=== PATIENT | female | born 1965 | race Two or more races ===

== ENCOUNTER 2021-10-27 16:29 | Observation (INO) | payer MEDICAID ==
[2021-10-27 16:57] LABS: BASOPHILS # (AUTO) 0.1 10^3/uL (0.0-0.1); BASOPHILS % (AUTO) 0.9 %; EOSINOPHILS # (AUTO) 0.2 10^3/uL (0.0-0.7); EOSINOPHILS % (AUTO) 2.8 %; HCT - HEMATOCRIT 45.8 % (37.0-47.0); HGB - HEMOGLOBIN 15.6 g/dL (12.0-16.0); LYMPHOCYTES # (AUTO) 2.5 10^3/uL (1.5-3.5); MEAN CORPUSCULAR HEMOGLOBIN 29.8 pg (27.0-31.0); MEAN CORPUSCULAR HGB CONC 34.1 g/dL (32.0-36.0); MEAN CORPUSCULAR VOLUME 87.4 fL (81.0-99.0); MEAN PLATELET VOLUME 10.1 fL (7.9-10.8); MONOCYTES # (AUTO) 0.3 10^3/uL (0.0-1.0); MONOCYTES % (AUTO) 5.3 %; NEUTROPHILS # (AUTO) 2.6 10^3/uL (1.5-6.6); NEUTROPHILS % (AUTO) 46.6 %; PLT - PLATELET COUNT 243 10^3/uL (130-450); RED BLOOD COUNT 5.24 10^6/uL (4.20-5.40); WHITE BLOOD COUNT 5.6 x10^3/uL (4.8-10.8)
[2021-10-27] MEDS ORDERED: ASPIRIN CHEW 81 MG TABLET PO STA (17:01)
--- NOTE | 2021-10-27 17:05 | ED Physician Documentation ---
PD HPI CHEST PAIN - Stated complaint Stated Complaint: CP,L ARM & HEAD PX - Chief complaint Chief Complaint: Cardiac - History obtained from History obtained from: Patient - Additional information Additional information: This is a 55-year-old woman who presents for evaluation of chest pain. For the last 3 days she has had constant left anterior chest pain. Although its been constant it has been increasing in its size. It started out as a "poking" pain that was quite focal near the left costochondral junction and since then has migrated to a much larger area across the breast and under the armpit. She is short of breath with it but denies sweats, except sweats that are associated with menopause. Denies pedal edema or calf pain. She vacillates on whether it is exertional or not. Cardiac risk factors include family history, mom having heart problem and dying in her 40s from it and her brother having coronary disease in his mid 50s. She is also a smoker. Review of Systems Ten Systems: 10 systems reviewed and negative Constitutional: denies: Fever, Chills, Fatigue Cardiac: denies: Palpitations Respiratory: denies: Cough PD PAST MEDICAL HISTORY - Allergies Allergies/Adverse Reactions: Allergies Allergy/AdvReac Type Severity Reaction Status Date / Time No Known Drug Allergies Allergy Verified 10/27/21 16:36 PD ED PE NORMAL - Vitals Vital signs reviewed: Yes - General General: Alert and oriented X 3, No acute distress - HEENT HEENT: PERRL, EOMI - Neck Neck: Supple, no meningeal sign, No bony TTP - Cardiac Cardiac: RRR, No murmur - Respiratory Respiratory: No respiratory distress, Clear bilaterally - Abdomen Abdomen: Normal bowel sounds, Soft, Non tender - Back Back: No CVA TTP, No spinal TTP - Derm Derm: Normal color, Warm and dry - Extremities Extremities: No edema, No calf tenderness / cord - Neuro Neuro: Alert and oriented X 3, Normal speech Results - Vitals Vitals: Vital Signs - 24 hr 10/27/21 10/27/21 10/27/21 16:34 16:52 17:31 Temperature 36.9 C Heart Rate 85 85 90 Respiratory 16 15 15 Rate Blood Pressure 147/87 H 135/90 H 141/102 H O2 Saturation 95 96 96 Oxygen O2 Source Room air - EKG (time done) 1644 Rate: Rate (enter#) (79) Rhythm: NSR [place]: Normal Intervals: Normal [place] QRS: Normal Ischemia: Non specific changes (Flattened T waves kind of diffusely without ST elevation or depression) - Labs Labs: Laboratory Tests 10/27/21 10/27/21 10/27/21 16:50 16:50 16:50 WBC 5.6 RBC 5.24 Hgb 15.6 Hct 45.8 MCV 87.4 MCH 29.8 MCHC 34.1 RDW 12.0 Plt Count 243 MPV 10.1 Neut # (Auto) 2.6 Lymph # (Auto) 2.5 Todd # (Auto) 0.3 Eos # (Auto) 0.2 Baso # (Auto) 0.1 Absolute Nucleated RBC 0.00 Nucleated RBC % 0.0 Sodium 133 L Potassium 3.8 Chloride 99 L Carbon Dioxide 23 Anion Gap 11.0 BUN 10 Creatinine 0.7 Estimated GFR (MDRD) 88 L Glucose 523 H* Calcium 9.8 Total Bilirubin 0.3 AST 26 ALT 45 Alkaline Phosphatase 129 H Troponin I High Sens 3.5 B-Natriuretic Peptide Total Protein 7.2 Albumin 3.9 Globulin 3.3 Albumin/Globulin Ratio 1.2 Lipase 44 10/27/21 16:50 WBC RBC Hgb Hct MCV MCH MCHC RDW Plt Count MPV Neut # (Auto) Lymph # (Auto) Todd # (Auto) Eos # (Auto) Baso # (Auto) Absolute Nucleated RBC Nucleated RBC % Sodium Potassium Chloride Carbon Dioxide Anion Gap BUN Creatinine Estimated GFR (MDRD) Glucose Calcium Total Bilirubin AST ALT Alkaline Phosphatase Troponin I High Sens B-Natriuretic Peptide 22 Total Protein Albumin Globulin Albumin/Globulin Ratio Lipase PD MEDICAL DECISION MAKING - ED course ED course: 55-year-old woman presents with a few days worth of atypical chest pain. For me she said it was constant but the nurse documented that it was intermittent. She has a nonischemic EKG and negative troponin. During the course of her work-up it was found that she has remarkably elevated blood sugar. She has no personal history of diabetes. Her heart score is 4. Aspirin was already given and I ordered Metformin and a small dose of Lantus to start. She is visiting from out of town and does not have adequate access to primary care follow-up. As such we will place her in observation for blood sugar management and cardiac rule out. Spoke with Dr. Davenport for this at 5:34 PM. Departure - Departure Disposition: ED Place in Observation Clinical Impression: Chest pain, Hyperglycemia Condition: Stable
--- NOTE | 2021-10-27 17:09 | XRAY Report ---
PROCEDURE: Chest 1 View X-Ray INDICATIONS: Chest pain TECHNIQUE: One view of the chest was acquired. COMPARISON: None. FINDINGS: Surgical changes and devices: None. Lungs and pleura: No pleural effusions or pneumothorax. Lungs are clear. Mediastinum: Mediastinal contours appear normal. Heart size is normal. Bones and chest wall: No suspicious bony lesions. Overlying soft tissues appear unremarkable. IMPRESSION: No acute cardiopulmonary process demonstrated radiographically. Reviewed by: Freeman Mendiola MD on 10/27/2021 5:08 PM PDT Approved by: Freeman Mendiola MD on 10/27/2021 5:08 PM PDT Station ID: [id number]
[2021-10-27 17:14] LABS: ALBUMIN 3.9 g/dL (3.2-5.5); ALBUMIN/GLOBULIN RATIO 1.2 (1.0-2.2); BILIRUBIN,TOTAL 0.3 mg/dL (0.2-1.0); CALCIUM 9.8 mg/dL (8.5-10.3); CREATININE 0.7 mg/dL (0.4-1.0); POTASSIUM 3.8 mmol/L (3.5-5.0); TOTAL PROTEIN 7.2 g/dL (6.7-8.2)
[2021-10-27] MEDS ORDERED: metFORMIN 500 MG TABLET PO STA (17:30)
[2021-10-27] MEDS ORDERED: INSULIN GLARGINE 300 UNIT/3 ML PEN SUBQ STA (17:30)
[2021-10-27] MEDS ORDERED: ACETAMINOPHEN 325 MG TABLET PO PRN (19:59)
[2021-10-27] MEDS ORDERED: ONDANSETRON 4 MG/2 ML VIAL IVP PRN (19:59)
[2021-10-27] MEDS ORDERED: SODIUM CHLORIDE FLUSH 0.9% 10 ML SYRINGE IVP PRN (19:59)
--- NOTE | 2021-10-27 20:05 | HISTORY & PHYSICAL EXAMINATION ---
Chief Complaint - Chief Complaint Chief Complaint: chest pain History of Present Illness - Admitted From Admitted From:: [facility] ED - History Obtained From Records Reviewed: yes History obtained from: patient - History of Present Illness HPI Comment/Other: Patient is a 55-year-old female with no significant medical history who presented to the ED with complaint of substernal chest pain with radiation to the left arm. Symptoms started 3 days ago. It has been intermittent lasting about 10 to 15 minutes. It is sharp in nature. She finally came in at the behest of her daughter. There are no precipitating factors to her symptoms. They also subside without any intervention. In the ED work-up included an EKG which showed flat T waves. Initial troponin was 3.5. And her BMP showed noted to have a blood glucose of 523. She denies any previous diagnosis of diabetes mellitus. She was presented for admission for further work-up. At bedside she denies chest pain, dyspnea, abdominal pain, nausea, vomiting, fever or chills. 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 Patient's brother has history of OH and CABG. Social History Notes: She lives at home with her daughter. She is independent of activities of daily living. She smokes 1 pack of cigarettes daily and has been smoking for 39 years. She denies alcohol or recreational substance use. - POLST Patient has POLST: No POLST Status: Full Code Meds/Allgy - Allergies Allergies/Adverse Reactions: Allergies Allergy/AdvReac Type Severity Reaction Status Date / Time No Known Drug Allergies Allergy Verified 10/27/21 16:36 Review of Systems - Constitutional Constitutional: denies: Fatigue, Fever - Eyes Eyes: denies: Pain - Ears, Nose & Throat Ears, Nose & Throat: denies: Vertigo - Cardiovascular Cariovascular: reports: Chest pain. denies: Irregular heart rate, Palpitations, Edema, Lightheadedness, Syncope, Exertional dyspnea - Respiratory Respiratory: denies: Cough, Sputum production, Wheezing, SOB at rest - Gastrointestinal Gastrointestinal: denies: Abdominal pain, Abdominal distention, Constipation, Nausea, Vomiting, Coffee grounds emesis, Reflux/heartburn - Genitourinary Genitourinary: denies: Dysuria, Frequency, Urgency, Hematuria - Musculoskeletal Musculoskeletal: denies: Muscle pain, Back pain, Muscle aches, Stiffness - Integumentary Integumentary: denies: Rash, Pruritis, Lesions, Dryness - Neurological Neurological: denies: General weakness, Focal weakness, Headache - Psychiatric Psychiatric: denies: Depression, Anxiety, Suicidal - Endocrine Endocrine: denies: Polyuria, Polydypsia - Hematologic/Lymphatic Hematologic/Lymphatic: denies: Anemia, Bruising Prior Level of Functionality: Patient is independent of activities of daily living Exam - Vital Signs Vital Signs: Vital Signs x48h Temp Pulse Resp BP Pulse Ox 10/27/21 19:30 68 17 144/95 H 96 10/27/21 19:03 69 17 150/71 H 96 10/27/21 18:45 75 16 116/81 H 95 10/27/21 17:31 90 15 141/102 H 96 10/27/21 16:52 85 15 135/90 H 96 10/27/21 16:34 36.9 C 85 16 147/87 H 95 - Physical Exam General Appearance: positive: No acute distress, Alert Eyes Bilateral: positive: PERRL, EOMI ENT: positive: No signs of dehydration Neck: positive: No JVD, Trachea midline Respiratory: positive: Chest non-tender, No respiratory distress, Breath sounds nml. negative: Wheezes, Rales, Rhonchi Cardiovascular: positive: Regular rate & rhythm, No murmur Abdomen: positive: Non-tender, No organomegaly, Nml bowel sounds, No distention. negative: Guarding, Rebound Back: positive: Nml inspection Skin: positive: Color nml, No rash, Warm, Dry Extremities: positive: Non-tender, Full ROM, Nml appearance, No pedal edema Neurologic/Psychiatric: positive: Oriented x3, Mood/affect nml Conclusion/Plan - Problem List (1) Chest pain Conclusion/Plan: EKG showed nonspecific T wave abnormalities. This included T wave flattening in the lateral leads. Initial troponin was 3.5. We will trend troponin x2 more. If negative will proceed with nuclear perfusion stress test. Patient received a full dose of aspirin. We will continue baby aspirin daily. We will check lipid panel in the morning. (2) Hyperglycemia Conclusion/Plan: Patient's blood glucose was 523. She denies previous diagnosis of diabetes mellitus. Hemoglobin A1c ordered for the morning. Accu-Cheks before every meal and at bedtime. Sliding scale insulin. Lantus 10 units subcu every afternoon. - Lab Results Fish Bones: 10/27/21 16:50 10/27/21 16:50 Core Measures - Anticipated LOS I expect patient to be DC'd or transferred within 96 hours.: Yes - DVT/VTE - Prophylaxis VTE/DVT Device ordered at admit?: Yes - AMI - Statin at Admit Aspirin Prescribed on Admit: Yes
[2021-10-27] MEDS ORDERED: INSULIN GLARGINE 300 UNIT/3 ML PEN SUBQ SCH (21:00)
[2021-10-27] MEDS: SODIUM CHLORIDE 0.9% 1,000 ML IV SCH (21:36)
[2021-10-27] MEDS: INSULIN REGULAR HUMAN 300 UNIT/3 ML VIAL SUBQ SCH (23:48)
[2021-10-28 05:46] LABS: BASOPHILS # (AUTO) 0.1 10^3/uL (0.0-0.1); BASOPHILS % (AUTO) 0.8 %; EOSINOPHILS # (AUTO) 0.2 10^3/uL (0.0-0.7); EOSINOPHILS % (AUTO) 3.3 %; HCT - HEMATOCRIT 45.8 % (37.0-47.0); HGB - HEMOGLOBIN 15.6 g/dL (12.0-16.0); LYMPHOCYTES # (AUTO) 3.5 10^3/uL (1.5-3.5); MEAN CORPUSCULAR HEMOGLOBIN 30.1 pg (27.0-31.0); MEAN CORPUSCULAR HGB CONC 34.1 g/dL (32.0-36.0); MEAN CORPUSCULAR VOLUME 88.4 fL (81.0-99.0); MEAN PLATELET VOLUME 9.9 fL (7.9-10.8); MONOCYTES # (AUTO) 0.4 10^3/uL (0.0-1.0); MONOCYTES % (AUTO) 6.1 %; NEUTROPHILS # (AUTO) 2.2 10^3/uL (1.5-6.6); NEUTROPHILS % (AUTO) 34.3 %; PLT - PLATELET COUNT 234 10^3/uL (130-450); RED BLOOD COUNT 5.18 10^6/uL (4.20-5.40); RED CELL DISTRIBUTION WIDTH 11.9 % (12.0-15.0); WHITE BLOOD COUNT 6.4 x10^3/uL (4.8-10.8)
[2021-10-28 05:53] LABS: CALCIUM 9.1 mg/dL (8.5-10.3); CREATININE 0.4 mg/dL (0.4-1.0); POTASSIUM 3.7 mmol/L (3.5-5.0)
[2021-10-28] MEDS: SODIUM CHLORIDE FLUSH 0.9% 10 ML SYRINGE IVP SCH ×3 (05:59→17:02)
[2021-10-28 06:01] LABS: CHOL/HDL RATIO 6.3 (<4.4); CHOLESTEROL 253 mg/dL; HDL CHOLESTEROL 40 mg/dL; LDL CHOLESTEROL,CALCULATED 147 mg/dL; LDL/HDL RATIO 3.7 (<4.4); TRIGLYCERIDES 329 mg/dL; VLDL CHOLESTEROL 66 mg/dL
[2021-10-28] MEDS: INSULIN REGULAR HUMAN 300 UNIT/3 ML VIAL SUBQ SCH (07:03)
[2021-10-28] MEDS: SODIUM CHLORIDE 0.9% 1,000 ML IV SCH (08:10)
[2021-10-28] MEDS ORDERED: ENOXAPARIN 40 MG/0.4 ML SYRINGE SUBQ SCH (09:00)
[2021-10-28] MEDS ORDERED: ASPIRIN EC 81 MG TABLET PO SCH (09:00)
[2021-10-28] MEDS ORDERED: AMINOPHYLLINE 500 MG/20 ML VIAL ONE (10:54)
[2021-10-28] MEDS ORDERED: REGADENOSON 0.4 MG/5 ML SYRINGE IVP ONE ×2 (10:54→11:52)
[2021-10-28 11:00] LABS: ESTIMATED AVERAGE GLUCOSE 392 mg/dL (70-100); HEMOGLOBIN A1c% 15.3 % (4.27-6.07)
[2021-10-28] MEDS: INSULIN ASPART 300 UNIT/3 ML PEN SUBQ SCH ×2 (12:47→17:01)
--- NOTE | 2021-10-28 16:29 | Nuclear Medicine Report ---
PROCEDURE: Rest and exercise myocardial perfusion SPECT with gated imaging and ejection fraction INDICATIONS: CHEST PAIN RADIOPHARMACEUTICAL: 7.94 mCi Tc-99m Myoview IV at rest and 37.0 mCi Tc-99m Myoview IV at peak exerc ise. [id number] was performed. TECHNIQUE: Radiopharmaceutical was injected at peak stress test, and also at rest. SPECT images wer e obtained. SPECT myocardial perfusion images were displayed in short axis, horizontal long axis, an d vertical long axis views. Gated images were reviewed using AutoQUANT software. COMPARISON: None available. FINDINGS: Raw data: There is good myocardial labeling by radiotracer. No significant motion artifacts. Lung- to-heart ratio is 0.25 (normal is less than 0.46 for tetrafosmin tracer). Left ventricle function: Gated images demonstrate normal left ventricle wall thickening. No segment al wall motion abnormality. No transient ischemic dilation; TID is 0.95 (normal less than 1.30). Th e left ventricle resting end-diastolic volume is 62 mL. Left ventricle stress ejection fraction is 7 1%; normal values are above 45%. Myocardial perfusion: There is a small, mildly intense, reversible perfusion defect in the inferolat eral wall which does not demonstrate complete normalization of the prone position compatible with sma ll irreversible ischemia.. There is a small, mildly intense, fixed perfusion defect in the anterosept al wall which demonstrates near complete normalization in the prone position is likely represents sof t tissue attenuation artifact. IMPRESSION: 1. Abnormal study demonstrating small area of mildly intense reversible ischemia involving the infero lateral wall. No fixed perfusion defects identified to suggest prior infarction. 2. Normal left ventricular function with no segmental wall motion abnormalities and normal stress LVE F of 71%. Findings telephoned to Dr. Miner on 10/28/2021 at 1637 hours. PQRS ATTESTATIONS: Measure 322 - Is this imaging test primarily performed on a low-risk surgery patient for preoperative evaluation within 30 days preceding their low-risk non-cardiac surgery? Low-risk surgery is defined as cardiac or myocardial infarction less than 1%, including (but not limited to) endoscopic pr ocedures, superficial procedures, cataract surgery, and excisional breast surgery: Answer: No Measure 323 - Is this imaging test performed primarily for the monitoring of an asymptomatic patient who had percutaneous coronary intervention on the visit date or within 2 years of the visit date? An swer: No Measure 324 - Is this imaging test performed primarily for the initial detection and risk assessment on an asymptomatic, low coronary heart disease patient? Low CHD risk definition = clinicians should consider the maximum number of available patient factors used to estimate risk based on [place] (A TP III criteria), typically age, gender, diabetes, smoking status, and use of blood pressure medicati on, and integrate age appropriate estimates for missing elements, such as LDL or standard blood press ure. Answer: No Reviewed by: Jemima Story MD, PhD on 10/28/2021 4:27 PM PDT Approved by: Jemima Story MD, PhD on 10/28/2021 4:27 PM PDT Station ID: [id number]
--- NOTE | 2021-10-28 17:47 | Discharge Plan ---
Discharge Plan Problem Reviewed?: Yes Disposition: Home, Self Care Condition: Stable Prescriptions: Blood-Glucose Meter [Glucometer] 1 each DAILY #1 each Blood Sugar Diagnostic [Glucometer Strips] 1 each MC DAILY #100 strip Pen Needle, Diabetic [Insulin Pen Needle] 1 each MC DAILY #1 packet Lancets 1 each MC DAILY #100 each Insulin Glargine [Lantus Solostar] 12 unit SUBQ QPM #3 syr Atorvastatin [Lipitor] 10 mg PO DAILY #30 tablet Diet: Diabetic Activity Restrictions: Activity as Tolerated Health Concerns: You presented to our emergency room with complaints of substernal chest pain t hat went to your left arm. Symptoms started 3 days ago and have been coming and going. They would last about 10 or 15 minutes. You describe it as sharp. In our emergency room your EKG was normal and all of your blood test for heart attack were negative. You are not having a heart attack. However, we then did a stress test of your heart to see if you had any arteries that were blocked. The stress test is positive. The bottom, side segment of your heart muscle on the left side shows possible artery blockage. I have spoken to cardiology and they state that it is okay for you to go home. Plan of Treatment: 1. Even though it is okay for you to go home, the basket machine operator tells me that he really wants to see you in the next 1 week. As such I am going to call on the morning of October 29 to see which clinic will see you as soon as possible. I will give you a phone call at your home at [phone] to tell you which clinic will see you. They will most likely want to do a coronary angiogram which is a dye study of the arteries of your heart. 2. You have diabetes. Your glucose was over 500 when you came into the hospital. Your glycosylated hemoglobin is 15.3%. Your goal is to be less than 7%. So this is a very high glucose and you already have damage from your diabetes and that your legs ache when you try and do things, your feet are numb. 3. Please establish yourself with a primary care provider. I hope you could see the [facility] clinics in [place] but they do not take regular medical patients. The only take dental and mental health patients. Please see either [facility] or [facility] primary care at [facility]. If those clinics cannot see you please call [facility] or [facility] practice in [facility]. 4. The primary care provider needs to get your sugar under control. But I am sending you home on Lantus and you will take 12 units the night before bedtime. That will hopefully start getting your sugar under control. I have referred you to the diabetic clinic here at [facility] and they should be calling you soon to start teaching you about diabetes and diet and getting the disease under control. 5. Because we think you have a small blocked artery in your heart, we are also sending you home on medicines that will protect your heart is much as possible. He will be sent home on a blood pressure pill, a cholesterol pill, and an aspirin. They are called low pressure, atorvastatin, and aspirin EC respectively. 6.Your cholesterol was 253. Your bad/LDL cholesterol was 147. Your good/HDL cholesterol was 40. And your triglycerides are high at 329. Please make sure you eat a low-fat diet. You also should start restricting your carbohydrate intake. So avoid bread, pasta, rice, potatoes, potato chips, and any processed food. You should focus on eating lean meats such as chicken, lean pork, fish. Try and grill your meat is much as possible. Eat as many fruits and vegetables as you want. And cut back on the carbohydrates. Care Goals: 1. To make sure that your arteries in your heart are open and that you are not going to have a heart attack 2. To get your diabetes under control. Diabetes leads to blindness, kidney failure, heart attack, stroke, and loss of feet and legs. Please get it under control as you can avoid these problems Assessment: Patient says she is very reluctant to be using Lantus but understands why she needs to get her sugar under control. She is motivated to get her glucose under control and promises to follow through on our recommendations [place] Care: [facility] [place] [facility] [place] No Smoking: If you smoke, Please STOP! Call for help.
--- NOTE | 2021-10-28 18:02 | DISCHARGE SUMMARY ---
"Discharge Summary Admit Date: 10/27/21 Discharge Date: 10/28/21 Discharging Provider: Jeimy Miner MD Primary Care Provider: No PCP Code Status: Attempt Resuscitation Condition at Discharge: Stable Discharge Disposition: 01 Home, Self Care - DIAGNOSES Discharge Diagnoses with Status of Each Condition: 1. Unstable angina 2. Abnormal nuclear medicine stress test 3. New onset of type 2 diabetes mellitus, uncontrolled, with complications of neuropathy 4. Hypertension 5. Mixed hyperlipidemiaabnormal - HPI History of Present Illness: Patient is a 55-year-old female with no significant medical history who p resented to the ED with complaint of substernal chest pain with radiation to the left arm. Symptoms started 3 days ago. It has been intermittent lasting about 10 to 15 minutes. It is sharp in nature. She finally came in at the behest of her daughter. There are no precipitating factors to her symptoms. They also subside without any intervention. In the ED work-up included an EKG which showed flat T waves. Initial troponin was 3.5. And her BMP showed noted to have a blood glucose of 523. She denies any previous diagnosis of diabetes mellitus. She was presented for admission for further work-up. At bedside she denies chest pain, dyspnea, abdominal pain, nausea, vomiting, fever or chills. 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 Chest x-ray is not acute cardiopulmonary process. 2. Myocardial perfusion scan has an abnormal study demonstrating small area of mildly intense reversible ischemia involving the inferolateral lateral wall. No fixed perfusion defects. Ejection fraction 71% and there were no segmental wall abnormalities. Patient is unable to do an echocardiogram at this hospital since we have lost echo capabilities in the last month. - HOSPITAL COURSE Hospital Course: Serial troponins were done and all were less than critical value. She underwent a Lexiscan stress test and she had inferolateral T wave inversions with injection of stress medication. They resolved within 2 minutes. Chest pain and shortness of breath was reproduced with the injection of the stress material. There is no arrhythmia. Nuclear medicine imaging report had small area of mildly intense reversible ischemia involving the inferolateral wall. No fixed perfusion defects. Left ventricular ejection fraction 71% with no segmental wall abnormalities. I discussed the case with [facility] on[facility]call. We went over the small area of reversible defect and he felt that that could be medically managed even with the diagnosis of unstable angina. However he strongly urged her to be seen by cardiology in the next few days. He was in agreement with beta-rajesh, statin, aspirin. I have also added Lantus 12 units at night. She needs to start diabetic education classes to get her glucose under control. She shares with me that she has been having polyuria and polydipsia for probably 2 years. She got to the point where she was feeling her stomach with fluid and was distended and did not want to eat so she lost a lot of weight. She has claudication with her history. Peripheral neuropathy of the feet. I explained to her that she needs to complete quite a bit of work for herself. Social work has gotten her Medicaid/[employer]. That is confirmed at discharge. She needs to be seen immediately with her primary care provider to establish care to get her blood pressure reviewed, glucose reviewed, and labs reviewed on the new medications I am starting her on. She needs to be referred to cardiology for urgent probable angiogram. She needs to be seen by ophthalmology for retinal exam. Medications at discharge are atorvastatin, Lantus, aspirin, Lopressor. She would be a candidate for an WADE inhibitor but I did not want to start on 2 blood pressure pills at the same time. I have sent her with prescriptions for Lantus pen, needles, lancets, glucometer, glucometer strips. She is does know how to use all of that yet but knows how to inject her self with Lantus. Diabetic education classes to start almost immediately and I will contact them tomorrow morning as well. If she has any recurrence of chest pain, chest pressure that is not going away, she needs to come back to the emergency room. At discharge she is an alert oriented [place] female, well-nourished well-developed. Temperature is 36.6. Pulse 75. Blood pressure 152/90. Respirations 18. 97% on room air. She weighs 78 kg and is 5 foot 6 inches tall. Neck is supple without bruits. Lungs are clear to auscultation and percussion without any increased respiratory effort and speaking or walking in the room. She has a regular rate and rhythm. No murmurs or gallops. The abdomen is soft, nontender, normal bowel sounds. Extremities are warm. I do not feel a dorsalis pedis pulse or posterior tibial pulse but there is no evidence of cyanosis or coolness in her feet. No clubbing cyanosis or edema. Light touch is not palpable by her when I use cotton swabs. - ALLERGIES Allergies/Adverse Reactions: Allergies Allergy/AdvReac Type Severity Reaction Status Date / Time No Known Drug Allergies Allergy Verified 10/27/21 16:36 - MEDICATIONS Home Medications: Ambulatory Orders Medication Instructions Recorded Confirmed Aspirin EC [Ecotrin] 81 mg PO DAILY tablet 10/28/21 Atorvastatin [Lipitor] 10 mg PO DAILY #30 tablet 10/28/21 Blood Sugar Diagnostic [Glucometer 1 each MC DAILY #100 strip 10/28/21 Strips] Blood-Glucose Meter [Glucometer] 1 each MC DAILY #1 each 10/28/21 Insulin Glargine [Lantus Solostar] 12 unit SUBQ QPM #3 syr 10/28/21 Lancets 1 each MC DAILY #100 each 10/28/21 Metoprolol Tartrate [Lopressor] 25 mg PO BID #60 tablet 10/28/21 Pen Needle, Diabetic [Insulin Pen 1 each MC DAILY #1 packet 10/28/21 Needle] - LABS Result Diagrams: 10/28/21 05:39 10/28/21 05:39"
[2021-10-28 18:52] VITALS: BP 152/90
[2021-10-29] MEDS ORDERED: INSULIN ASPART 300 UNIT/3 ML PEN SUBQ SCH (08:00)
--- NOTE | 2021-10-29 11:17 | CARDIAC PROCEDURE NOTE ---
Stress Test Report Service Date: 10/28/21 Service Time: 10:40 Ordering Provider: Nina Vazquez MD Indication for Test: Patient is a 55-year-old female with no significant medical history who presented to the ED with complaint of substernal chest pain with radiation to th e left arm. Symptoms started 3 days ago. It has been intermittent lasting about 10 to 15 minutes. It is sharp in nature. She finally came in at the behest of her daughter. There are no precipitating factors to her symptoms. They also subside without any intervention. In the ED work-up included an EKG which showed flat T waves. Initial troponin was 3.5. And her BMP showed noted to have a blood glucose of 523. She denies any previous diagnosis of diabetes mellitus. She was presented for admission for further work-up. At bedside she denies chest pain, dyspnea, abdominal pain, nausea, vomiting, fever or chills. Significant Medical History: She denies any significant past medical history but during her initial evaluation in the emergency room she is identified as having hypertension, hyperlipidemia, and severely uncontrolled diabetes mellitus with an A1c of 15.3%. In retrospect she has been having polyuria, polydipsia for over 3 years. She is also had significant weight loss. Cardiac Risk Factors: Hypertension, diabetes, hyperlipidemia, all uncontrolled Type of Stress Test: Pharmacologic Stress Test with MPI Pharmacologic Agent: Lexiscan Procedure: After obtaining informed consent, pharmacologic stress testing was performed with Lexiscan injection. Baseline heart rate was 66 bpm. Baseline blood pressure was 135/84. With stimulant, heart rate went to 105, blood pressure went to 151/87. The patient complained of shortness of breath and chest pain that mimicked her presentation on admission. It also went down her left arm and was accompanied by diaphoresis. The resting EKG demonstrated normal sinus rhythm without acute ST-T wave changes. She did have T wave inversions V2-V4 with her symptomatology that resolved 3 minutes. Patient was left with a mild headache. Under separate dictation from radiology her rest and exercise myocardial perfusion SPECT with gated imaging and ejection fraction was done. It was a good myocardial labeling by tracer. She had a normal left ventricular wall thickening, no segmental wall abnormality. Ejection fraction was 71%. With myocardial perfusion there was small, mildly intense, reversible perfusion defect in the inferolateral wall which did not demonstrate complete normalization of the prone position compatible with small irreversible ischemia. There is a small, mildly intense, fixed perfusion defect in the anteroseptal wall which demonstrates near complete normalization in the prone position likely representing soft tissue attenuation artifact. Summary: The patient presents with chest pain with exertion accompanied by radiation to the left arm. Troponins are without rise. Resting EKG is normal. However with stress EKG does change, and nuclear medicine imaging confirms reversible defects. The case was discussed with Ignacio Oneil, [facility] cardiology on-call, and he recommends medical management with discharge. Patient is to follow-up with a primary care provider and get urgent referral to cardiology for coronary angiogram.
== END 2021-10-28 19:00 | disposition home or self-care (01) ==
LOC: ED 16:29 → MS2 19:59
PROVIDERS: ADMIT Internal Medicine; ATTEND Specialist
DX: I20.0 Unstable angina (principal); E11.40 Type 2 diabetes mellitus with diabetic neuropathy, unspecified; E11.65 Type 2 diabetes mellitus with hyperglycemia; E78.2 Mixed hyperlipidemia; F17.210 Nicotine dependence, cigarettes, uncomplicated; I10 Essential (primary) hypertension; R51.9 Headache, unspecified; R94.31 Abnormal electrocardiogram [ECG] [EKG]; Z79.4 Long term (current) use of insulin; Z82.49 Family history of ischemic heart disease and other diseases of the circulatory system
CPT/HCPCS: 36415; 71045; 78452; 80048; 80053; 80061; 83036; 83690; 83880; 84484; 85025; 87635; 93005; 93017; 96372; 96374; 99282; 99285; A9270; A9500; G0378; J1650; J1815; J2785; 83721

== ENCOUNTER 2021-11-14 19:55 | Outpatient (CLI) | payer MEDICAID ==
--- NOTE | 2021-11-15 11:07 | Ultrasound Report ---
PROCEDURE: Ankle Brachial Index INDICATIONS: PAIN IN BILATERAL LOWER LEGS TECHNIQUE: Ankle-brachial indices were obtained bilaterally and recorded. COMPARISONS: None. FINDINGS: Right ankle brachial index (ABEL): 0.76 Left ankle brachial index (ABEL): 0.78 Healing potential: Ankle pressures >55 mm Hg in non-diabetics and >80 mm Hg in diabetics are likely to achieve primary h ealing of ischemic foot ulcers. Toe pressures >30 mm Hg are likely to achieve primary healing of ischemic foot ulcers, toe or transme tatarsal amputations. IMPRESSION: Moderately reduced ankle-brachial indices can be seen on both sides. Reviewed by: Jan Carlson MD on 11/15/2021 10:06 AM MICHAEL Approved by: Jan Carlson MD on 11/15/2021 10:06 AM MICHAEL Station ID: [id number]
== END 2021-11-14 19:56 | disposition home or self-care (01) ==
LOC: DI 19:55
PROVIDERS: ATTEND Physician Assistant
DX: R94.39 Abnormal result of other cardiovascular function study (principal)
CPT/HCPCS: 93922

== ENCOUNTER 2022-01-28 14:24 | Outpatient (CLI) | payer MEDICAID ==
[2022-01-28 18:06] LABS: CREATININE,URINE 104.5 mg/dL; MICROALBUM/CREATININE RATIO,UR 4.8 ug/mg (<30.0); MICROALBUMIN,URINE 0.5 mg/dL (0-300.0)
[2022-01-28 20:58] LABS: ESTIMATED AVERAGE GLUCOSE 266 mg/dL (70-100); HEMOGLOBIN A1c% 10.9 % (4.27-6.07)
== END 2022-01-28 14:25 | disposition home or self-care (01) ==
LOC: LAB.N 14:24
PROVIDERS: ATTEND Physician Assistant
DX: E11.69 Type 2 diabetes mellitus with other specified complication (principal)
CPT/HCPCS: 36415; 82043; 82570; 83036

== ENCOUNTER 2022-05-04 12:27 | Outpatient (CLI) | payer MEDICAID ==
--- NOTE | 2022-05-05 11:51 | Mammography Report ---
BILATERAL DIGITAL SCREENING MAMMOGRAM 3D/2D: 05/04/2022 CLINICAL: Routine screening. Baseline exam. No prior exams were available for comparison. There are scattered areas of fibroglandular density in both breasts (category b / 25%-50% glandular t issue). No significant masses, calcifications, or other findings are seen in either breast. IMPRESSION: NEGATIVE There is no mammographic evidence of malignancy. A 1 year screening mammogram is recommended. Based on the Tyrer Cuzick model (a risk assessment model) the patients lifetime risk is 8.2% and her 10 year risk is 2.3%. According to the ACR, ACS, and NCCN guidelines, an annual breast MRI exam rtever g with mammogram is recommended if the patients lifetime risk is 20% or greater. This exam was interpreted at Station ID: [id number]. NOTE: For mammograms, a report in lay terms will be sent to the patient. Approximately 15% of breast malignancies will not be visualized mammographically. In the management of a palpable breast mass, a negative mammogram must not discourage biopsy of a clinically suspicious lesion. Electronically Signed By: Jace [email or web address]:05/04/2022 15:21:18 ACR BI-RADS Category 1: Negative 3341F PARENCHYMAL PATTERN: (A) - The breast(s) demonstrate(s) scattered fibroglandular densities. BI-RADS CATEGORY: (1) - 1 RECOMMENDATION: (ANNUAL) - Recommend routine annual screening mammography. [id number] 1 year screening LATERALITY: (B)
== END 2022-05-04 12:28 | disposition home or self-care (01) ==
LOC: DI.N 12:27
PROVIDERS: ATTEND Physician Assistant
DX: Z12.31 Encounter for screening mammogram for malignant neoplasm of breast (principal)

== ENCOUNTER 2022-05-04 13:04 | Outpatient (CLI) | payer MEDICAID ==
[2022-05-04 18:16] LABS: CALCIUM 9.4 mg/dL (8.5-10.3); CREATININE 0.6 mg/dL (0.4-1.0)
[2022-05-04 20:23] LABS: ESTIMATED AVERAGE GLUCOSE 200 mg/dL (70-100); HEMOGLOBIN A1c% 8.6 % (4.27-6.07)
== END 2022-05-04 13:05 | disposition home or self-care (01) ==
LOC: LAB.N 13:04
PROVIDERS: ATTEND Physician Assistant
DX: E11.69 Type 2 diabetes mellitus with other specified complication (principal)
CPT/HCPCS: 36415; 80048; 83036

== ENCOUNTER 2022-07-31 13:40 | Outpatient (CLI) | payer MEDICAID ==
[2022-07-31 22:15] LABS: ESTIMATED AVERAGE GLUCOSE 206 mg/dL (70-100); HEMOGLOBIN A1c% 8.8 % (4.27-6.07)
== END 2022-07-31 13:41 | disposition home or self-care (01) ==
LOC: LAB.N 13:40
PROVIDERS: ATTEND Physician Assistant
DX: E11.69 Type 2 diabetes mellitus with other specified complication (principal)
CPT/HCPCS: 36415; 83036

== ENCOUNTER 2022-10-05 16:00 | Outpatient (CLI) | payer MEDICAID ==
[2022-10-05 17:40] LABS: BASOPHILS % (AUTO) 0.7 %; HCT - HEMATOCRIT 45.3 % (37.0-47.0); HGB - HEMOGLOBIN 15.2 g/dL (12.0-16.0); LYMPHOCYTES % (AUTO) 54.3 %; MEAN CORPUSCULAR HEMOGLOBIN 29.1 pg (27.0-31.0); MEAN CORPUSCULAR HGB CONC 33.6 g/dL (32.0-36.0); MEAN CORPUSCULAR VOLUME 86.8 fL (81.0-99.0); MEAN PLATELET VOLUME 9.8 fL (7.9-10.8); NEUTROPHILS % (AUTO) 35.8 %; PLT - PLATELET COUNT 299 10^3/uL (130-450); RED BLOOD COUNT 5.22 10^6/uL (4.20-5.40); RED CELL DISTRIBUTION WIDTH 12.6 % (12.0-15.0); WHITE BLOOD COUNT 9.7 x10^3/uL (4.8-10.8)
[2022-10-05 17:45] LABS: ABNORMAL LYMPHS % (MANUAL) 0 %; BAND NEUTROPHILS % (MANUAL) 0 %
[2022-10-05 17:51] LABS: ALBUMIN 3.9 g/dL (3.2-5.5); ALBUMIN/GLOBULIN RATIO 1.1 (1.0-2.2); ALKALINE PHOSPHATASE 83 IU/L (42-121); ALT ALANINE AMINOTRANSFERASE 38 IU/L (10-60); AST ASPARTATE AMINOTRANSFERASE 20 IU/L (10-42); BILIRUBIN,TOTAL 0.7 mg/dL (0.2-1.0); BUN - BLOOD UREA NITROGEN 16 mg/dL (6-20); CALCIUM 9.9 mg/dL (8.5-10.3); CARBON DIOXIDE - CO2 27 mmol/L (21-32); CHLORIDE 105 mmol/L (101-111); CHOL/HDL RATIO 5.6 (<4.4); CHOLESTEROL 197 mg/dL; CREATININE 0.6 mg/dL (0.4-1.0); GFR - MDRD 104 (>89); GLUCOSE 163 mg/dL (70-100); HDL CHOLESTEROL 35 mg/dL; LDL CHOLESTEROL,CALCULATED 107 mg/dL; LDL/HDL RATIO 3.1 (<4.4); SODIUM 138 mmol/L (135-145); TOTAL PROTEIN 7.5 g/dL (6.7-8.2); TRIGLYCERIDES 274 mg/dL; VLDL CHOLESTEROL 55 mg/dL
[2022-10-05 18:31] LABS: BASOPHILS # (MANUAL) 0.1 10^3/uL (0-0.1); BASOPHILS % (MANUAL) 1 %; EOSINOPHILS # (MANUAL) 0.3 10^3/uL (0-0.7); LYMPHOCYTES # (MANUAL) 5.8 10^3/uL (1.5-3.5); LYMPHOCYTES % (MANUAL) 40 %; NEUTROPHILS # (MANUAL) 2.5 10^3/uL (1.5-6.6); REACTIVE LYMPHS % (MANUAL) 20 %
[2022-10-05 18:32] LABS: DIFFERENTIAL COMMENT MANUAL DIFFERENTIAL; WBC MORPHOLOGY (MULTIPLE) 2+ REACTIVE LYMPHS (NORMAL)
[2022-10-05 21:53] LABS: ESTIMATED AVERAGE GLUCOSE 217 mg/dL (70-100); HEMOGLOBIN A1c% 9.2 % (4.27-6.07)
== END 2022-10-05 16:01 | disposition home or self-care (01) ==
LOC: LAB.N 16:00
PROVIDERS: ATTEND Physician Assistant
DX: I25.10 Atherosclerotic heart disease of native coronary artery without angina pectoris (principal); E11.69 Type 2 diabetes mellitus with other specified complication
CPT/HCPCS: 36415; 80053; 80061; 83036; 83721; 85025

== ENCOUNTER 2022-11-06 13:08 | Outpatient (CLI) | payer MEDICAID ==
--- NOTE | 2022-11-06 14:19 | XRAY Report ---
PROCEDURE: Hip w/Pelvis 2-3V RT INDICATIONS: HIP PAIN,RIGHT TECHNIQUE: AP pelvis with lateral view(s) of the right hip(s). COMPARISON: None. FINDINGS: Bones: No fractures or dislocations. Pelvic ring appears intact. No suspicious bony lesions. Poss ible/equivocal minimal hip joint space narrowing bilaterally. Soft tissues: The visualized bowel gas pattern is normal. No suspicious soft tissue calcifications. IMPRESSION: 1. No acute osseous abnormality. 2. Possible/equivocal minimal hip degenerative changes bilaterally. Reviewed by: Jace Dick MD on 11/06/2022 2:17 PM PDT Approved by: Jace Dick MD on 11/06/2022 2:17 PM PDT Station ID: [id number]
== END 2022-11-06 13:09 | disposition home or self-care (01) ==
LOC: DI 13:08
PROVIDERS: ATTEND Physician Assistant
DX: M25.551 Pain in right hip (principal)

== ENCOUNTER 2022-12-04 13:15 | Outpatient (CLI) | payer MEDICAID ==
[2022-12-04 21:15] LABS: ESTIMATED AVERAGE GLUCOSE 197 mg/dL (70-100); HEMOGLOBIN A1c% 8.5 % (4.27-6.07)
== END 2022-12-04 13:16 | disposition home or self-care (01) ==
LOC: LAB.N 13:15
PROVIDERS: ATTEND Physician Assistant
DX: E11.69 Type 2 diabetes mellitus with other specified complication (principal)
CPT/HCPCS: 36415; 83036